=== PATIENT | male | born 1960 | race Caucasian/White ===

== ENCOUNTER 2019-02-12 10:48 | Emergency (ER) | payer OTHER ==
[2019-02-12 11:01] VITALS: BP 184/108
--- NOTE | 2019-02-12 11:20 | EDPHY ---
H & P Stated Complaint: r knee inj Time Seen by Provider: 02/12/19 10:56 HPI/ROS: CHIEF COMPLAINT: Right knee pain HISTORY OF PRESENT ILLNESS: 59-year-old male complaining of acute right knee pain which occurred when he was skiing yesterday. No direct trauma or fall. He was able to continue skiing for 2 hr afterward. He splits his time between [place] and [place] and is returning to driving back to [place] in a few days and already has an appointment with an orthopedic surgeon in [place]. He is able to bear weight. Denies instability. Denies: Fall from height, paresthesia, sensory deficit. PRIMARY CARE PROVIDER: REVIEW OF SYSTEMS: A ten point review of systems was performed and is negative with the exception of the items mentioned in the HPI PHYSICAL EXAM (Prior to examination, patient consented to physical exam, hands were washed and my usual and customary physical exam procedures followed) 1) GENERAL: Well-developed, well-nourished, alert and oriented. Appears to be in no acute distress. 2) HEAD: Normocephalic 3) HEENT: Pupils equal, round, reactive to light bilaterally. 4) LUNGS: Breathing comfortably. 5) MUSCULOSKELETAL: Exam of the right knee shows edema . Full flexion extension. Observed weight-bearing with no gross instability. No gross instability on examination. Compartments are soft. 6) SKIN: Intact. No overlying skin changes. 7) VASCULAR: DP,PT pulses and cap refill present and brisk distally DIFFERENTIAL DIAGNOSIS: in no particular order including but not limited to fracture, sprain, compartment syndrome, septic arthritis, DVT MEDICAL DECISION MAKING Serial evaluations performed on patient. I discussed the limitations of x-ray in diagnosis of knee pain and injury. At this time I do not think that emergent MRI is currently indicated. However, I have recommended follow-up with Orthopedic surgery and provided this referral information. He has already an appointment with orthopedic surgeon in [place]. I recommend he keep this appointment. Informed the patient that outpatient MRI may be indicated. Doubt septic arthritis. Doubt compartment syndrome. Doubt DVT. He feels comfortable being discharged. Care of patient under supervision of secondary supervising physician Dr Ovi Ray . - Personal History Current Tetanus/Diphtheria Vaccine: Unsure Current Tetanus Diphtheria and Acellular Pertussis (TDAP): Unsure - Medical/Surgical History Hx Asthma: No Hx Chronic Respiratory Disease: No Hx Diabetes: No Hx Cardiac Disease: No Hx Renal Disease: Yes Hx Cirrhosis: No Hx Alcoholism: No Hx HIV/AIDS: No Hx Splenectomy or Spleen Trauma: No Other PMH: polycythemia, prostate cancer, renal cell cancer, kidney cancer, r side partial nephrectomy - Social History Smoking Status: Never smoked Constitutional: Initial Vital Signs Temperature (C) 36.5 C 02/12/19 10:55 Heart Rate 70 02/12/19 10:55 Respiratory Rate 16 02/12/19 10:55 Blood Pressure 184/108 H 02/12/19 10:55 O2 Sat (%) 99 02/12/19 10:55 O2 Delivery Mode Room Air Allergies/Adverse Reactions: cat dander Allergy (Verified 02/12/19 11:20) Home Medications: Medication Instructions Recorded Aspirin 81mg (*) 02/12/19 Hydroxyurea 02/12/19 Loratadine 02/12/19 Medical Decision Making - Diagnostics Imaging Results: Imaging Impressions Knee X-Ray 02/12/19 11:15 Impression: Knee effusion. No acute fracture. Images reviewed myself Departure - Departure Disposition: Home, Routine, Self-Care Clinical Impression: Skiing accident Qualifiers: Encounter type: initial encounter Qualified Code(s): V00.328A - Other snow-ski accident, initial encounter Right knee sprain Qualifiers: Encounter type: initial encounter Involved ligament of knee: unspecified ligament Qualified Code(s): S83.91XA - Sprain of unspecified site of right knee , initial encounter Condition: Good Instructions: Knee Sprain (ED) Additional Instructions: Return to the ER immediately if you experience discoloration, have worsening pain, numbness, tingling, or any other symptoms that concern you. If you received x-rays in the emergency department today, be advised, that ligamentous , tendon, muscular, and other non-bony injury cannot be fully ruled out. Try to keep your affected extremity elevated above the level of your chest, and keep cold packs on the affected area, for the next 48 hours. Referrals: Maverick Horta MD [Medical Doctor] - 2-3 days, call for appt. (You may also follow up with your orthopedic surgeon in [place].)
== END 2019-02-12 11:48 | disposition home or self-care (01) ==
DX: M25.561 Pain in right knee (principal); D75.1 Secondary polycythemia; Z85.46 Personal history of malignant neoplasm of prostate; Z85.528 Personal history of other malignant neoplasm of kidney